=== PATIENT | male | born 1985 | race Caucasian/White ===

== ENCOUNTER 2021-05-09 18:20 | Emergency (ER) | payer OTHER ==
[~2021-05-09] VITALS: Ht 175.3 cm; Wt 74.8 kg
--- NOTE | ~2021-05-09 | EKG ---
[address] [address] ELECTROCARDIOGRAM REPORT Name: ESTELA BARNES Room #: SAMMY Lam#: [id number] Admission: 05/09/21 Attend Phys: Discharge: 05/09/21 Date of : 89 Report #: [id number] [facility] ED Test Date: 2021-05-09 Test Time: 18:28:57 Pat Name: ESTELA BARNES Department: Room: Gender: M [place] Nurse: VALORIE : 1985 Requested By: Renu Olivera Order Number: [id number] MD: Measurements Intervals [place] Rate: 88 P: 99 AR: 152 QRS: 86 QRSD: 89 T: 46 QT: 366 QTc: 443 Interpretive Statements Sinus rhythm No previous ECG available for comparison [email or web address] By: 27 27 Epiphany MD Figueroa /EPI
[2021-05-09] MEDS ORDERED: CLARITIN10 M3 PO (18:36)
[2021-05-09 19:54] LABS: CALCIUM 9.1 mg/dL (8.5-10.1); CREATININE 0.7 mg/dL (0.7-1.3); POTASSIUM 3.7 mmol/L (3.5-5.1)
[2021-05-09] MEDS ORDERED: OMEPRAZOLE40 MG PO (20:14)
[2021-05-09 20:43] VITALS: BP 134/83
== END 2021-05-09 20:46 | disposition home or self-care (01) ==
LOC: ER 18:20
PROVIDERS: Physician Assistant
DX: R07.89 Other chest pain (principal); K21.9 Gastro-esophageal reflux disease without esophagitis; Z79.899 Other long term (current) drug therapy